=== PATIENT | male | born 1985 | race Caucasian/White ===

== ENCOUNTER 2016-05-22 13:51 | Emergency (ER) | payer SELFPAY ==
[~2016-05-22] VITALS: Ht 182.9 cm; Wt 127.0 kg
[~2016-05-22 13:51] MED LIST: CEPH-264 PO; DOXY100C14 PO; DOXY100T PO; HYDR-2666 PO; MUPI1OIN NS; OXYC-244 PO; PRED20TA PO; SULF1TAB24 PO
[2016-05-22 14:07] VITALS: BP 140/81
[2016-05-22] MEDS ORDERED: HYDROCODONE/APAP 5/325MG TABLET. PO ONE (14:30)
[2016-05-22] MEDS ORDERED: HYDR-971 PO (14:33)
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
--- NOTE | 2016-05-23 07:39 | RAD ---
RIBS LEFT AND PA CHEST Clinical Indication: Fell 2 days ago, upper left rib pain. Comparison: None. Technique: Frontal view the chest and frontal and oblique views of the left ribs are obtained. Findings: No focal consolidation, pleural effusion or pneumothorax is seen. Cardiomediastinal silhouette is within normal limits of size. Visualized osseous structures and overlying soft tissues demonstrate no acute finding. Specifically, no acute displaced left-sided rib fractures are seen. IMPRESSION: No radiographic evidence of an acute cardiopulmonary process or displaced rib fracture.
== END 2016-05-22 14:45 | disposition home or self-care (01) ==
LOC: ER 13:51
DX: S20.212A Contusion of left front wall of thorax, initial encounter (principal); M25.552 Pain in left hip; S40.212A Abrasion of left shoulder, initial encounter; F15.10 Other stimulant abuse, uncomplicated; V19.9XXA Pedal cyclist (driver) (passenger) injured in unspecified traffic accident, initial encounter; Y93.89 Activity, other specified; Y99.8 Other external cause status; Y92.89 Other specified places as the place of occurrence of the external cause
CPT/HCPCS: 71101; 99284

== ENCOUNTER 2021-01-11 12:22 | Emergency (ER) | payer SELFPAY ==
[~2021-01-11] VITALS: Ht 182.9 cm; Wt 113.6 kg
[2021-01-11 12:22] VITALS: BP 143/80
[~2021-01-11 12:22] MED LIST changes: +DOXY-181 PO; -DOXY100C14 PO; +HYDR-2155 PO; -HYDR-2666 PO; +HYDR-3165 PO; -OXYC-244 PO; +OXYC1TAB19 PO
[2021-01-11] MEDS ORDERED: SULF1TAB24 PO (13:08)
--- NOTE | 2021-01-11 13:08 | PHYS DOC ---
Past History Past Medical History: No Pertinent History Past Surgical History: No Surgical History Alcohol Use: Rarely Drug Use: Methamphetamine General Adult EDM: Chief Complaint: CELLULITIS HPI: HPI: Patient is a 35-year-old male that presents today with a right wrist area of swelling and pain. Patient states that 2 to 3 days ago he developed a raised area with a rose on it he said he popped that, and "pus, came out of it, he states that since that time it has become more reddened and painful. Patient states in the past he has had MRSA and he feels that this is going to be the same. Patient denies fever or chills, or nausea and vomiting Review of Systems: Review of Systems: Constitutional: Denies fever or chills Eyes: Denies change in visual acuity HENT: Denies nasal congestion or sore throat Respiratory: Denies cough or shortness of breath Cardiovascular: Denies chest pain or edema GI: Denies abdominal pain, nausea, vomiting, bloody stools or diarrhea : Denies dysuria Musculoskeletal: Denies back pain or joint pain Integument: right wrist pain Neurologic: Denies headache, focal weakness or sensory changes Endocrine: Denies polyuria or polydipsia Lymphatic: Denies swollen glands Psychiatric: Denies depression or anxiety Allergies: Allergies: Allergies Coded Allergies Type Severity Reaction Last Updated Verified No Known Drug Allergies 12/30/14 No Physical Exam: PE: Constitutional: Well developed, well nourished, no acute distress, non-toxic appearance. [] HENT: Normocephalic, atraumatic, bilateral external ears normal, oropharynx moist, no oral exudates, nose normal. [] Eyes: PERRLA, EOMI, conjunctiva normal, no discharge. [] Neck: Normal range of motion, no tenderness, supple, no stridor. [] Cardiovascular:Heart rate regular rhythm, no murmur [] Lungs & Thorax: Bilateral breath sounds clear to auscultation [] Abdomen: Bowel sounds normal, soft, no tenderness, no masses, no pulsatile masses. [] Skin: Reddened area with a 1 cm x 1 cm open wound noted on the right wrist area, neurovascular intact distal to the injury Back: No tenderness, no CVA tenderness. [] Extremities: No tenderness, no cyanosis, no clubbing, ROM intact, no edema. [] Neurologic: Alert and oriented X 3, normal motor function, normal sensory function, no focal deficits noted. [] Psychologic: Affect normal, judgement normal, mood normal. [] Current Patient Data: Vital Signs: Vital Signs Date Time Temp Pulse Resp B/P (MAP) Pulse Ox O2 Delivery O2 Flow Rate FiO2 01/11/21 12:22 97.5 89 18 143/80 (101) 98 Room Air EKG: EKG: [] Radiology/Procedures: Radiology/Procedures: [] Heart Score: C/O Chest Pain: N/A Risk Factors: Risk Factors: DM, Current or recent (<one month) smoker, HTN, HLP, family history of CAD, obesity. Risk Scores: Score 0 - 3: 2.5% MACE over next 6 weeks - Discharge Home Score 4 - 6: 20.3% MACE over next 6 weeks - Admit for Clinical Observation Score 7 - 10: 72.7% MACE over next 6 weeks - Early Invasive Strategies Course & Med Decision Making: Course & Med Decision Making Pertinent Labs and Imaging studies reviewed. (See chart for details) We will give the patient Keflex 500 mg, will also give patient a list of primary care physicians that he can follow-up with Carolyn Disclaimer: Carolyn Disclaimer: This electronic medical record was generated, in whole or in part, using a voice recognition dictation system. Departure Departure: Impression: Primary Impression: Cellulitis Qualified Codes: L03.113 - Cellulitis of right upper limb Disposition: HOME / SELF CARE / HOMELESS Condition: STABLE Referrals: PCP,NO (PCP) Patient Instructions: Cellulitis Additional Instructions: Take Bactrim DS twice daily until gone Tylenol and/or ibuprofen as needed for pain Follow-up with one of the primary care physicians on the list provided for further follow-up and management of the cellulitis Return to the emergency department for increased pain, swelling, or fever Scripts Sulfamethoxazole/Trimethoprim (BACTRIM DS TABLET) 1 Each Tablet 1 TAB PO BID for cellultitis for 10 Days, #20 TAB 0 Refills Prov: SATINDER SYLVESTER APRN 01/11/21 SATINDER SYLVESTER APRN Jan 11, 2021 13:08
== END 2021-01-11 13:16 | disposition home or self-care (01) ==
LOC: ER 12:22
DX: L03.113 Cellulitis of right upper limb (principal)
CPT/HCPCS: 99283